=== PATIENT | male | born 1930 | race Caucasian/White ===

== ENCOUNTER 2017-10-20 08:19 | Day surgery (SDC) | payer OTHER ==
[~2017-10-20] VITALS: Ht 175.3 cm; Wt 104.5 kg
[~2017-10-20 08:19] MED LIST: DORZOPSO; EYE; LEVO750 PO; LOSA25 PO; LOSA50; LUMIGAN2.5 ML; MECL25 PO; SIMV40; VALS80; [UNRECOGNIZED DRUG - REMARK]
[2017-10-20] MEDS ORDERED: ALLO300 (08:33)
== END 2017-10-20 10:15 | disposition home or self-care (01) ==
LOC: ORSCSDS 08:19
PROVIDERS: Student in an Organized Health Care Education/Training Program
PROC: 0DBL8ZX Excision of Transverse Colon, Via Natural or Artificial Opening Endoscopic, Diagnostic (ICD-10-PCS; principal; 2017-10-20 09:30)
DX: Z12.11 Encounter for screening for malignant neoplasm of colon (principal); D12.3 Benign neoplasm of transverse colon; K64.8 Other hemorrhoids; Z85.038 Personal history of other malignant neoplasm of large intestine; Z86.010 Personal history of colon polyps; G47.33 Obstructive sleep apnea (adult) (pediatric); I10 Essential (primary) hypertension; Z79.899 Other long term (current) drug therapy
CPT/HCPCS: 88305

== ENCOUNTER 2018-03-29 13:44 | Inpatient (IN) | payer OTHER, SELFPAY ==
[~2018-03-29] VITALS: Ht 175.3 cm; Wt 111.0 kg
[~2018-03-29 13:44] MED LIST changes: +ALLO300 PO; -LOSA50; +LOSA50 PO; -SIMV40; +SIMV40 PO
[2018-03-29 14:54] LABS: BASOPHILS ABSOLUTE AUTO 0.02 K/mm3 (0.00-0.23); BASOPHILS PERCENT AUTO 0 % (0-2); EOSINOPHILS ABSOLUTE AUTO 0.01 K/mm3 (0.00-0.68); EOSINOPHILS PERCENT AUTO 0 % (0-6); Hematocrit 42.1 % (37.0-53.0); Hemoglobin 14.1 g/dL (13.5-17.5); IMMATURE GRAN ABSOLUTE AUTO 0.05 K/mm3 (0.00-0.10); IMMATURE GRAN PERCENT AUTO 1 % (0-1); LYMPHOCYTES ABSOLUTE AUTO 1.29 K/mm3 (0.84-5.20); LYMPHOCYTES PERCENT AUTO 15 % (21-46); MONOCYTES ABSOLUTE AUTO 0.47 K/mm3 (0.16-1.47); MONOCYTES PERCENT AUTO 6 % (4-13); Mean Corpuscular HGB 33.3 pg (26.0-34.0); Mean Corpuscular HGB Conc 33.5 g/dL (31.5-36.5); Mean Corpuscular Volume 100 fL (80-100); Mean Platelet Volume 11.3 fL (9.1-12.4); NEUTROPHILS ABSOLUTE AUTO 6.64 K/mm3 (1.96-9.15); NEUTROPHILS PERCENT AUTO 78 % (41-73); Platelet Count 107 K/mm3 (150-400); RDW Coefficient Variation 12.7 % (11.7-14.2); RDW Standard Deviation 46.9 fL (35.1-46.3); Red Blood Cell Count 4.23 M/mm3 (4.30-5.90); White Blood Cell Count 8.48 K/mm3 (4.00-11.30)
[2018-03-29 15:05] LABS: Albumin, Blood 2.8 g/dL (3.4-5.0); Albumin/Globulin Ratio 0.7 (0.8-1.8); Bilirubin, Total 0.4 mg/dL (0.1-1.0); Bun/Creatinine Ratio 19.2 (12.0-20.0); Calcium, Blood 8.4 mg/dL (8.5-10.1); Creatinine, Blood 1.3 mg/dL (0.60-1.20); Potassium, Blood 4.1 mmol/L (3.5-5.5); Total Protein, Blood 6.8 g/dL (6.4-8.2)
[2018-03-29 15:21] LABS: Influenza A Positive (NEGATIVE); Influenza B Negative (NEGATIVE)
[2018-03-29] MEDS ORDERED: CEFP500 PO (15:47)
[2018-03-29] MEDS ORDERED: PRED10 PO (15:48)
[2018-03-29] MEDS ORDERED: Sudogest30 MG PO (15:48)
[2018-03-29] MEDS ORDERED: HYDHOMSY PO (15:49)
--- NOTE | 2018-03-30 03:28 | NUR ---
SHIFT SUMMARY PT ADMITTED FOR ACUTE RESP FAILURE. FULL CODE. CARDIAC DIET. ELEVATE BILATERAL LOWER EXTREMITIES ABOVE HIP LEVEL TOLLERATED. TELE-NSR WITH PVC AT A RATE OF 84 PER SHIP ENGINEER. CONTINUOUS BIOX. LOVENOX FOR DVT PROPHYLAXIS. 20G IV TO R WRIST. DROPLET PRECAUTIONS FOR INFLUENZA A POSITIVE. ON 2-3 L O2 BLEED INTO TO BIPAP WITH SATS GREATER THEN 94%. PRIOR TO BED WAS ON 2L VIA NC DUE TO DECREASED SATS WITH ACTIVITY. 1 PERSON STANDBY ASSIST TO INDEPENDENT WITH TRANSFERS. TAKES MEDS WHOLE WITH WATER. THE PT PRESENTED TO THE ED WITH C/O COUGH AND DYSPNEA X 7 DAYS. THE PT SAW PCP AND WAS PRESCRIBED STEROIDS AND ANTIBIOTICS THAT DID NOT IMPROVE S/SX. PT WAS STARTED ON O2 IN THE ED FOR SATS DECREASED TO 86-87%. PT IS NOT ON O2 AT BASELINE. PT STARTED ON TAMIFLU AND ROCEPHIN DUE TO QUESTIONABLE FOR SECONDARY DX OF BACTERIAL PNEUMONIA PER REPORT. THE PT IS ALERT, ORIENTED, PLEASENT AND COOPERATIVE. APPEARS TO BE SLEEPING COMFORTABLY AT THIS TIME WITH NO APPARENT SIGNS OF ACUTE DISTRESS. ABLE TO MAKE NEEDS KNOWN AND CALL LIGHT IN REACH.
[2018-03-30 05:25] LABS: BASOPHILS ABSOLUTE AUTO 0.01 K/mm3 (0.00-0.23); BASOPHILS PERCENT AUTO 0 % (0-2); EOSINOPHILS PERCENT AUTO 0 % (0-6); Hematocrit 43.9 % (37.0-53.0); Hemoglobin 14.6 g/dL (13.5-17.5); Mean Corpuscular HGB 33.5 pg (26.0-34.0); Mean Corpuscular HGB Conc 33.3 g/dL (31.5-36.5); Mean Corpuscular Volume 101 fL (80-100); Mean Platelet Volume 11.1 fL (9.1-12.4); Platelet Count 113 K/mm3 (150-400); RDW Coefficient Variation 12.6 % (11.7-14.2); RDW Standard Deviation 47.3 fL (35.1-46.3); Red Blood Cell Count 4.36 M/mm3 (4.30-5.90); White Blood Cell Count 4.87 K/mm3 (4.00-11.30)
[2018-03-30 05:26] LABS: IMMATURE GRAN ABSOLUTE AUTO 0.03 K/mm3 (0.00-0.10); IMMATURE GRAN PERCENT AUTO 1 % (0-1); LYMPHOCYTES ABSOLUTE AUTO 1.26 K/mm3 (0.84-5.20); LYMPHOCYTES PERCENT AUTO 26 % (21-46); MONOCYTES ABSOLUTE AUTO 0.17 K/mm3 (0.16-1.47); MONOCYTES PERCENT AUTO 4 % (4-13); NEUTROPHILS PERCENT AUTO 70 % (41-73)
[2018-03-30 05:56] LABS: Anion Gap 11 mmol/L (6-16); Blood Urea Nitrogen 26 mg/dL (8-24); Bun/Creatinine Ratio 23.6 (12.0-20.0); CO2, Blood 21 mmol/L (21-32); Calcium, Blood 8.5 mg/dL (8.5-10.1); Chloride, Blood 109 mmol/L (98-108); Glomerular Filtration Rate >60 (60-); Glucose, Blood 150 mg/dL (70-99); Sodium, Blood 141 mmol/L (136-145)
--- NOTE | 2018-03-30 18:03 | NUR ---
shift summary patient continues to state he is feeling better. weaned off 02, tolerating this well. eager to get up walking with daughter. family has been at bedside throughout the day. no acute issues noted.
--- NOTE | 2018-03-31 04:55 | NUR ---
SHIFT SUMMARY NO APPARENT ACUTE CHANGES SO FAR THIS SHIFT. PT CONTINUED TO HAVE DIFFICULTY WITH A GOOD NIGHT SLEEP SECONDARY TO COMPLICATIONS WITH OUR C-PAP DUE TO NOT HAVING HOME C-PAP. CALL TO RT TO ADJUST SETTING, RT ATTEMPTED TO ADJUST SETTING SEVERAL TIME. PT CONTINUES TO HAVE AN OCCATIONAL COUGH BUT DID NOT APPEAR THIS WAS KEEPING PT AWAKE. PT DOES CONTINUE TO NEED INTERMITTENT OXYGEN BOTH AT NIGHT AND AT REST AT TIMES. THE PT DOES APPEAR TO BE SLEEPING COMFORTABLY AT THIS TIME WITH NO APPARENT SIGNS OF ACUTE DISTRESS. ABLE TO MAKE NEEDS KNOWN AND CALL LIGHT IN REACH.
[2018-03-31 05:11] LABS: Hematocrit 41.9 % (37.0-53.0); Mean Corpuscular HGB 33.1 pg (26.0-34.0); Mean Corpuscular HGB Conc 33.4 g/dL (31.5-36.5); Mean Corpuscular Volume 99 fL (80-100); Mean Platelet Volume 11.3 fL (9.1-12.4); Platelet Count 145 K/mm3 (150-400); RDW Coefficient Variation 12.8 % (11.7-14.2); RDW Standard Deviation 46.5 fL (35.1-46.3); Red Blood Cell Count 4.23 M/mm3 (4.30-5.90); White Blood Cell Count 12.34 K/mm3 (4.00-11.30)
[2018-03-31 05:32] LABS: Bun/Creatinine Ratio 23.3 (12.0-20.0); Calcium, Blood 8.7 mg/dL (8.5-10.1); Creatinine, Blood 1.29 mg/dL (0.60-1.20); Potassium, Blood 3.9 mmol/L (3.5-5.5)
[2018-03-31] MEDS ORDERED: ALBU90OI INH (12:22)
[2018-03-31] MEDS ORDERED: ACET325 PO (12:22)
[2018-03-31] MEDS ORDERED: BENZ100A PO (12:22)
[2018-03-31] MEDS ORDERED: ROBITUSSIN100 MG/5 M PO (12:23)
[2018-03-31] MEDS ORDERED: DOXY100 PO (12:24)
[2018-03-31] MEDS ORDERED: GUAI600T33 PO (12:24)
[2018-03-31] MEDS ORDERED: Senna Plus Tab1 EACH PO (12:24)
[2018-03-31] MEDS ORDERED: ONDA4ODT MM (12:25)
[2018-03-31] MEDS ORDERED: Tamiflu30 MG PO (12:25)
--- NOTE | 2018-03-31 12:52 | NUR ---
PATIENT DISCHARGED WITH SON IN LAW. PATIENT WAS ABLE TO AMBULATE SELF AROUND ROOM. USED W/C UPON DISCHARGE FOR EASE OF AMBULATING. MEDICATIONS FAXED TO [facility]. NO ACUTE ISSUES NOTED. DISCHARGE EDUCATION PROVIDED TO FAMILY REGARDING MEDICATIONS AND INFLUENZA.
== END 2018-03-31 12:37 | disposition home or self-care (01) | DRG 193 ==
LOC: ER 13:44 → MEDS 16:58
PROVIDERS: Nurse Practitioner Acute Care; Physician Assistant; ADMIT Internal Medicine
DX: J10.1 Influenza due to other identified influenza virus with other respiratory manifestations (principal); J96.01 Acute respiratory failure with hypoxia; N17.9 Acute kidney failure, unspecified; G47.33 Obstructive sleep apnea (adult) (pediatric); J20.8 Acute bronchitis due to other specified organisms; E78.5 Hyperlipidemia, unspecified; I10 Essential (primary) hypertension; M10.9 Gout, unspecified; Z85.038 Personal history of other malignant neoplasm of large intestine; Z88.5 Allergy status to narcotic agent; Z79.899 Other long term (current) drug therapy
CPT/HCPCS: 36415; 71046; 80048; 80053; 83880; 84145; 85025; 85027; 87804; 94640; 94660; 94762; 96361; 96365; 96375; 99285-25; J0696; J1650; J2930; J7030

== ENCOUNTER 2018-05-02 23:13 | Emergency (ER) | payer OTHER, SELFPAY ==
[~2018-05-02] VITALS: Ht 175.3 cm; Wt 104.3 kg
[~2018-05-02 23:13] MED LIST changes: +ACET325 PO; +ALBU90OI INH; +BENZ100A PO; +CEFP500 PO; +DOXY100 PO; +GUAI600T33 PO; +HYDHOMSY PO; +ONDA4ODT MM; +PRED10 PO; +ROBITUSSIN100 MG/5 M PO; +Senna Plus Tab1 EACH PO; +Sudogest30 MG PO; +Tamiflu30 MG PO
[2018-05-02] MEDS ORDERED: ALLO300 PO (23:24)
[2018-05-03 01:04] LABS: BASOPHILS ABSOLUTE AUTO 0.04 K/mm3 (0.00-0.23); BASOPHILS PERCENT AUTO 1 % (0-2); EOSINOPHILS PERCENT AUTO 3 % (0-6); Hematocrit 47.5 % (37.0-53.0); Hemoglobin 15.4 g/dL (13.5-17.5); IMMATURE GRAN ABSOLUTE AUTO 0.02 K/mm3 (0.00-0.10); IMMATURE GRAN PERCENT AUTO 0 % (0-1); LYMPHOCYTES ABSOLUTE AUTO 2.08 K/mm3 (0.84-5.20); LYMPHOCYTES PERCENT AUTO 29 % (21-46); MONOCYTES ABSOLUTE AUTO 0.75 K/mm3 (0.16-1.47); MONOCYTES PERCENT AUTO 10 % (4-13); Mean Corpuscular HGB 32.8 pg (26.0-34.0); Mean Corpuscular HGB Conc 32.4 g/dL (31.5-36.5); Mean Corpuscular Volume 101 fL (80-100); Mean Platelet Volume 9.6 fL (9.1-12.4); NEUTROPHILS ABSOLUTE AUTO 4.12 K/mm3 (1.96-9.15); NEUTROPHILS PERCENT AUTO 57 % (41-73); Platelet Count 195 K/mm3 (150-400); RDW Coefficient Variation 13.6 % (11.7-14.2); RDW Standard Deviation 50.7 fL (35.1-46.3); White Blood Cell Count 7.21 K/mm3 (4.00-11.30)
[2018-05-03 01:23] LABS: Alanine Aminotransfer (ALT/SGP 30 U/L (12-78); Albumin, Blood 3.6 g/dL (3.4-5.0); Albumin/Globulin Ratio 0.9 (0.8-1.8); Alk Phos 77 U/L (50-136); Anion Gap 8 mmol/L (6-16); Aspartate Aminotrans (AST/SGOT 24 U/L (12-37); Bilirubin, Total 0.5 mg/dL (0.1-1.0); Blood Urea Nitrogen 19 mg/dL (8-24); CO2, Blood 29 mmol/L (21-32); Calcium, Blood 9.4 mg/dL (8.5-10.1); Chloride, Blood 106 mmol/L (98-108); Creatinine, Blood 1.12 mg/dL (0.60-1.20); Globulin, Blood 4.2 g/dL (2.2-4.0); Glomerular Filtration Rate >60 (60-); Glucose, Blood 99 mg/dL (70-99); Sodium, Blood 143 mmol/L (136-145); Total Protein, Blood 7.8 g/dL (6.4-8.2); Troponin I 0.018 ng/mL (0.000-0.040)
[2018-05-03] MEDS ORDERED: Hydrochlorothia25 MG PO (01:57)
[2018-05-03] MEDS ORDERED: LOSA50 PO (01:57)
== END 2018-05-03 02:09 | disposition home or self-care (01) ==
LOC: ER 23:13
PROVIDERS: Physician Assistant
DX: I10 Essential (primary) hypertension (principal); Z88.5 Allergy status to narcotic agent; Z79.899 Other long term (current) drug therapy; Z85.038 Personal history of other malignant neoplasm of large intestine
CPT/HCPCS: 36415; 71046; 80053; 84484; 85025; 93005; 93010; 99284-25